=== PATIENT | female | born 2000 | race Two or more races ===

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

== ENCOUNTER 2023-05-20 21:06 | Emergency (ER) | payer MEDICAID ==
[~2023-05-20] VITALS: Ht 152.4 cm; Wt 59.0 kg
[2023-05-20 22:25] VITALS: PULSE 68; RESP 14; O2SAT 97
[2023-05-20 22:41] LABS: Basophils # (auto) 0 10 ^3/uL (0-0.2); Basophils % (auto) 0.3 % (0.0-2.0); Eosinophils # (auto) 0 10 ^3/uL (0-0.8); Eosinophils % (auto) 0.2 % (0.0-7.0); Hematocrit 40.2 % (36.0-46.0); Hemoglobin 13.3 g/dL (12.2-16.2); Lymphocytes # (auto) 1.4 10 ^3/uL (0.4-5.4); Mean Corpuscular Hemoglobin 27.8 pg (28.0-32.0); Mean Corpuscular Volume 84.3 fL (80.0-100.0); Monocytes # (auto) 0.7 10 ^3/uL (0-1.3); Monocytes % (auto) 6.5 % (0.0-12.0); Nucleated Red Blood Cells % 0.1 %; Red Blood Cells 4.77 10^6/uL (4.0-5.20); Red Cell Distribution Width 15.3 % (11.8-14.3); White Blood Cell 10.1 10^3/uL (4.4-10.8)
[2023-05-20 23:10] LABS: Acetaminophen < 2.0 UG/ML (10.0-20.0)
[2023-05-20 23:13] LABS: Alanine Aminotransferase 30 U/L (7-40); Albumin 4.7 g/dL (3.2-4.8); Alkaline Phosphatase 96 U/L (46-116); Anion Gap 11 (5-15); Aspartate Aminotransferase 27 U/L (13-40); BUN/Creatinine Ratio 6.4 (10.0-20.0); Bilirubin, Total 0.4 mg/dL (0.2-1.0); Blood Alcohol 83.1 mg/dL (<10); Blood Urea Nitrogen 5 mg/dL (9-23); Calcium 9.1 mg/dL (8.7-10.4); Carbon Dioxide 23 mmol/L (20-30); Chloride 108 mmol/L (98-107); Glucose 90 mg/dL (74-106); Potassium 3.4 mmol/L (3.5-5.1); Sodium 142 mmol/L (136-145); Total Protein 8.3 g/dL (5.7-8.2)
[2023-05-20 23:16] LABS: Salicylate < 3.0 mg/dL (2.8-20.0)
[2023-05-20 23:19] LABS: Urine Bacteria FEW /hpf (None Seen); Urine Blood Negative /uL (Negative); Urine Clarity HAZY (Clear); Urine Color Yellow (Yellow); Urine Mucus FEW (None Seen); Urine Protein, UAD 1+ (Negative); Urine Specific Gravity 1.032 (1.001-1.035); Urine Urobilinogen Normal (Negative); Urine WBC 3 /hpf (0 - 5); Urine pH 5.5 (5.0-8.0)
[2023-05-20 23:20] LABS: Amphetamine Screen, Urine Neg (NEGATIVE); Barbiturate Scree,Urine Neg (NEGATIVE); Benzodiazephine Screen, Urine Neg (NEGATIVE); Cocaine Screen, Urine Neg (NEGATIVE); Opiate Scree,Urine Neg (NEGATIVE)
[2023-05-20 23:21] LABS: Cannabinoid Screen, Urine Neg (NEGATIVE); Phencyclidine Screen, Urine Neg (NEGATIVE)
[2023-05-21 00:40] LABS: COVID19 ANTIGEN SOFIA FIA NEGATIVE (NEGATIVE)
[2023-05-21] MEDS ORDERED: TETANUS-DIPTH-ACEL PERTUSSIS 0.5ML SYR Tdap IM ONE (01:15)
[2023-05-21] MEDS: SERTRALINE HCL 50 MG TAB PO SCH (10:28)
[2023-05-21] MEDS ORDERED: cefTRIAXone W LIDOCAINE 1 GM IM IM ONE (14:15)
[2023-05-21] MEDS ORDERED: HYDROcodone-ACET 5/325MG TAB PO ONE (14:15)
[2023-05-21] MEDS ORDERED: cefTRIAXone SOD 1,000 MG VL IM ONE (14:30)
[2023-05-21 20:39] VITALS: PULSE 84; RESP 18; O2SAT 97
[2023-05-22 07:35] VITALS: RESP 18; O2SAT 99
[2023-05-22] MEDS: SERTRALINE HCL 50 MG TAB PO SCH (10:32)
[2023-05-22 18:35] VITALS: BP 130/78; PULSE 90; RESP 18; TEMP 98.3; O2SAT 98
== END 2023-05-22 18:18 | disposition short-term general hospital (02) ==
LOC: ER 21:06 → EDBD 21:06 → ER 05-22 18:18
DX: S41.112A Laceration without foreign body of left upper arm, initial encounter (principal); S81.811A Laceration without foreign body, right lower leg, initial encounter; F32.A Depression, unspecified; Z20.822 Contact with and (suspected) exposure to COVID-19; X83.8XXA Intentional self-harm by other specified means, initial encounter; Y93.89 Activity, other specified; Y92.89 Other specified places as the place of occurrence of the external cause; Y99.8 Other external cause status
CPT/HCPCS: 36415; 80053; 80307; 80320; 80329; 81001; 81025; 85025; 87426; 90471; 90715; 96372; J0696

== ENCOUNTER 2023-06-02 22:34 | Emergency (ER) | payer SELFPAY ==
[~2023-06-02] VITALS: Ht 152.4 cm; Wt 110.0 kg
[2023-06-02 23:45] LABS: Basophils # (auto) 0.1 10 ^3/uL (0-0.2); Basophils % (auto) 0.4 % (0.0-2.0); Eosinophils # (auto) 0.1 10 ^3/uL (0-0.8); Eosinophils % (auto) 0.8 % (0.0-7.0); Hematocrit 39.2 % (36.0-46.0); Hemoglobin 12.9 g/dL (12.2-16.2); Lymphocytes # (auto) 2.1 10 ^3/uL (0.4-5.4); Lymphocytes % (auto) 16.1 % (10.0-50.0); Mean Corpuscular Hemoglobin 27.9 pg (28.0-32.0); Mean Corpuscular Volume 84.7 fL (80.0-100.0); Monocytes # (auto) 0.7 10 ^3/uL (0-1.3); Monocytes % (auto) 5.1 % (0.0-12.0); Neutrophils # (auto) 9.9 10 ^3/uL (1.6-8.6); Neutrophils % (auto) 77.6 % (37.0-80.0); Red Blood Cells 4.63 10^6/uL (4.0-5.20); White Blood Cell 12.7 10^3/uL (4.4-10.8)
[2023-06-03] VITALS: PULSE 96; RESP 16; O2SAT 99
[2023-06-03 00:07] LABS: Acetaminophen < 2.0 UG/ML (10.0-20.0)
[2023-06-03 00:08] LABS: Alanine Aminotransferase 18 U/L (7-40); Albumin 4.4 g/dL (3.2-4.8); Alkaline Phosphatase 93 U/L (46-116); Anion Gap 10 (5-15); Aspartate Aminotransferase 20 U/L (13-40); BUN/Creatinine Ratio 10.3 (10.0-20.0); Bilirubin, Total 0.3 mg/dL (0.2-1.0); Blood Urea Nitrogen 7 mg/dL (9-23); Calcium 9.1 mg/dL (8.7-10.4); Carbon Dioxide 20 mmol/L (20-30); Chloride 108 mmol/L (98-107); Glucose 90 mg/dL (74-106); Salicylate < 3.0 mg/dL (2.8-20.0); Sodium 138 mmol/L (136-145)
[2023-06-03 00:09] LABS: Total Protein 7.9 g/dL (5.7-8.2)
[2023-06-03] MEDS ORDERED: LIDOCAINE 1% (LOCAL ANESTH.) PF 5ml SDV ID ONE (02:15)
[2023-06-03 02:31] LABS: Urine Bacteria FEW /hpf (None Seen); Urine Blood TRACE /uL (Negative); Urine Clarity Clear (Clear); Urine Color Colorless (Yellow); Urine Protein, UAD Negative (Negative); Urine Specific Gravity 1.006 (1.001-1.035); Urine Urobilinogen Normal (Negative); Urine WBC 1 /hpf (0 - 5); Urine pH 6.5 (5.0-8.0)
[2023-06-03 02:55] LABS: Amphetamine Screen, Urine Neg (NEGATIVE); Barbiturate Scree,Urine Neg (NEGATIVE); Benzodiazephine Screen, Urine Neg (NEGATIVE); Opiate Scree,Urine Neg (NEGATIVE); Phencyclidine Screen, Urine Neg (NEGATIVE)
[2023-06-03 02:56] LABS: Cannabinoid Screen, Urine Neg (NEGATIVE); Cocaine Screen, Urine Neg (NEGATIVE)
[2023-06-03] MEDS ORDERED: ACETAMINOPHEN 325 MG TAB PO ONE (05:30)
[2023-06-03 08:27] VITALS: PULSE 78; RESP 20; O2SAT 99
[2023-06-03 21:00] VITALS: PULSE 83; RESP 16; O2SAT 98
[2023-06-03] MEDS: QUEtiapine FUMARATE 25 MG TAB PO SCH (22:33)
[2023-06-04 08:00] VITALS: PULSE 80; RESP 20; O2SAT 99
[2023-06-04] MEDS: QUEtiapine FUMARATE 25 MG TAB PO SCH (22:40)
[2023-06-05 08:31] VITALS: PULSE 64; RESP 18; O2SAT 96
[2023-06-05 17:16] VITALS: BP 122/80; PULSE 75; RESP 18; TEMP 98.4; O2SAT 96
== END 2023-06-05 17:35 | disposition short-term general hospital (02) ==
LOC: EDBD 22:34 → ER 22:34
DX: S51.812A Laceration without foreign body of left forearm, initial encounter (principal); R10.2 Pelvic and perineal pain; R45.851 Suicidal ideations; F41.9 Anxiety disorder, unspecified; F32.9 Major depressive disorder, single episode, unspecified; W45.8XXA Other foreign body or object entering through skin, initial encounter; Y93.89 Activity, other specified; Y92.89 Other specified places as the place of occurrence of the external cause; Y99.8 Other external cause status
CPT/HCPCS: 12005; 36415; 80053; 80307; 80329; 81001; 84702; 85025; 93005

== ENCOUNTER 2023-06-12 18:02 | Emergency (ER) | payer SELFPAY ==
[~2023-06-12] VITALS: Ht 152.4 cm; Wt 110.4 kg
[2023-06-13 02:26] VITALS: BP 101/64; PULSE 109; RESP 20; TEMP 98.2; O2SAT 98
== END 2023-06-13 03:19 | disposition home or self-care (01) ==
LOC: ER 18:02
DX: S51.812D Laceration without foreign body of left forearm, subsequent encounter (principal); F41.9 Anxiety disorder, unspecified; F32.9 Major depressive disorder, single episode, unspecified; X58.XXXD Exposure to other specified factors, subsequent encounter